=== PATIENT | male | born 1960 | race Caucasian/White ===

== ENCOUNTER 2020-02-11 18:30 | Outpatient (RCR) | payer OTHER, SELFPAY ==
--- NOTE | 2019-11-18 11:05 | HP.PTEVAL_ITS ---
Patient's Visit Information REAL CURRIE is a 59 year old M referred to Physical Therapy by NORA ZHU with a diagnosis of L hip pain. Date of Evaluation: 11/18/19 Physical Therapist: Vitor Montana, PT, ATC - Visit Plan Frequency: 2x /Week Duration: 2 Weeks Plan: Issue and instruct pt on HEP of L LE stretching, foam rolling, and L hip strengthening - Subjective Pt reports his L hip has been sore for years. Pt reports over the past few months, he has become much more sore. Pt notes he has been working harder ever since the COVID shutdown. Pt reports his hip clicks with certain movements. Pt also notes his hip is sore when he squats. 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 Pt notes he [place] and takes care of the land which results in pain. Pt reports he is an avid bike rider, which he has been limited from at times secondary to pain. Pt also notes he has trouble with putting on his shoes at times secondary to pain. No tingling or numbness in L LE. Pt notes no sleep difficulty secondary to pain. Pt reports he has had xrays which revealed deformity at the L hip. 0/10 pain at rest, 9/10 pain at worst (trying to put his shoe on). - Pain L hip pain Pain Intensity (Out of 10): 0 Pain Intensity Range: 9 - Objective Neuro: B LE sensation is WNL to light touch. B patellar reflex= 2/3. Palpation: No pain this date. No obvious deformity. ROM: B LE's are WNL. MMT: B LE's are 5/5 throughout. Flexibility: B LE's quads, HS's, and IT bands are moderately limited. - Goals Goal 1:: I with HEP Goal Time Frame: 2-4 Weeks - Rehabilitation Potential Physical Therapy Diagnosis: L hip pain and difficulty with sqautting secondary to Limited flexibility in L IT band Rehabilitation Potential: Good - Anticipated Interventions Patient/Client Instruction: Educate patient on: Condition, Plan of Care For the Purpose of:: To improve self management Therapeutic Exercise to Include: Strength training, Flexibilty training, Dynamic Lumbar Stabilization For the Purpose of:: To decrease pain, To improve muscle performance and motor function Cryotherapy (ice pack, ice massage): Yes Ultrasound (thermal/non thermal): Yes For the Purpose of:: To decrease pain Thank you for the opportunity to evaluate your patient. For Medicare and Medicare HMO plans, please review the plan of care and approve it. It will need to be FAXED BACK to us at [phone] for Medicare purposes. For Medicare only, by signing this I certify the plan of care. Please let me know if there are questions or concerns regarding this plan of care. Physician Signature: Date:
--- NOTE | 2019-12-04 12:11 | HP.PTREVAL ---
NORA ZHU, It has been my pleasure to treat REAL CURRIE over the last 6 visits for L hip pain. Please see the progress note below for an update on the physical therapy plan of care! Subjective: I felt good until I overdid it the past few days Objective/Function: Pt is now I with HEP. No pain in L hip with exception to when he performs heavy activity. Rx goal achieved Plan Plan: recheck in 3-4 weeks Goals Goal 1:: I with HEP Goal Time Frame: 2-4 Weeks Goal Progress: Goal Met Anticipated Interventions Patient/Client Instruction: Educate patient on: Condition, Plan of Care For the Purpose of:: To improve self management Therapeutic Exercise to Include: Strength training, Flexibilty training, Dynamic Lumbar Stabilization For the Purpose of:: To decrease pain, To improve muscle performance and motor function Cryotherapy (ice pack, ice massage): Yes Ultrasound (thermal/non thermal): Yes For the Purpose of:: To decrease pain Please do not hesitate to contact me at [phone] by phone or if you have questions or concerns regarding this new plan of care! Sincerely, Vitor Montana, PT, ATC
--- NOTE | 2020-02-02 11:32 | HP.PTREVAL ---
NORA ZHU, It has been my pleasure to treat REAL CURRIE over the last 8 visits for L hip pain. Please see the progress note below for an update on the physical therapy plan of care! Subjective: Pt. is back after seeing physician. I am seeing him for the 1st time today. He has a new script to trial DN and for his L anterior hip pain. He reports symptoms that come and go, but can be very sore expecially after activities. He has had to hold off on most of his exercises due to his L anterior hip pain. No radiating pain noted. Objective/Function: Pt. tolerated all PT well this date. Pt. had a positive response with DN and hip extension stretching/manual this date. Pt. has signs and symptoms consistent with labral tear vs hip flexor. Pt. has pain with FADDIR testing and is PTP at psoas muscle belly. Pt. also has increased pain with any hip flexion resisted movements. Pt. is to have an arthrogram next week looking at these pathologies as well. Plan Plan: Possible labral tear vs psoas tendonosis. Pt. to have hip arthrogram next week. Pending results I plan to do DN to anterior hip, hip flexor manual therapy and hip flexor stretching, figure 4 stretching. Goals Goal 1:: I with HEP Goal Time Frame: 2-4 Weeks Goal Progress: Progressing Goal 2:: LTG: pt. to have full ROM of L hip without increase in symptoms. Goal Time Frame: 2-4 Weeks Goal Progress: Progressing Goal 3:: LTG: Pt. to have 4+/5 L hip flexor strength without increase in symptoms. Goal Time Frame: 4-6 Weeks Goal 4:: LTG: pt. to complete all recreational activities including cycling, hiking and jogging without increase in symptoms. Goal Time Frame: 4-6 Weeks Anticipated Interventions Patient/Client Instruction: Educate patient on: Condition, Plan of Care For the Purpose of:: To improve self management Therapeutic Exercise to Include: Strength training, Flexibilty training, Dynamic Lumbar Stabilization For the Purpose of:: To decrease pain, To improve muscle performance and motor function Cryotherapy (ice pack, ice massage): Yes Ultrasound (thermal/non thermal): Yes For the Purpose of:: To decrease pain Please do not hesitate to contact me at [phone] by phone or if you have questions or concerns regarding this new plan of care! Sincerely, ALYCIA LamT
== END 2020-02-11 19:00 | disposition home or self-care (01) ==
LOC: PT 18:30
PROVIDERS: PCP Family Medicine
DX: M62.89 Other specified disorders of muscle (principal); M25.852 Other specified joint disorders, left hip
CPT/HCPCS: 97110; 97161; 97164; 97530